=== PATIENT | female | born 1940 | race Caucasian/White ===

== ENCOUNTER 2016-10-01 16:28 | Emergency (ER) | payer OTHER ==
[~2016-10-01] VITALS: Ht 157.5 cm; Wt 83.5 kg
--- NOTE | ~2016-10-01 | CR72 ---
[facility] A Service of [facility] RADIOLOGY TEXT RESULTS PATIENT: ROSSY MCCORMICK LOCATION: [facility] : 36 UNIT #: [id number] AGE: [address]: Francisco Le MD SEX: F ORDER DR: [id number] [facility] [address] [place], [place] [address] [id number] MR#: [id number] Acc #: [id number] NAME: ROSSY MCCORMICK : 1940 SEX: F STUDY DATE/TIME: 10/01/2016 18:13 UNIT: [facility] ROOM: STUDY DESCRIPTION: CR Chest Single View Portable Attending Physician: Francisco Le M.D. Ordering Physician: Francisco Le M.D. Primary Care Physician: Laltio Lakhani M.D. MEDICAL IMAGING REPORT This report is preliminary unless electronic signature is present EXAM Portable chest HISTORY Shortness of air and weakness today. FINDINGS Mild cardiac enlargement. Normal pulmonary vascularity. Relatively low lung volumes. No airspace infiltrates or effusions. IMPRESSION No acute findings. Mild cardiac enlargement. Lungs are clear. Dictated by... Gerardo Aggarwal M.D. THIS IS AN ELECTRONICALLY VERIFIED REPORT Gerardo Aggarwal M.D. at 10/02/2016 2:37 PM [place] TD: 10/02/2016 09:14 JOB #: [id number] MEDICAL IMAGING REPORT Page 1 of 1 COPY
--- NOTE | ~2016-10-01 | EKG ---
PATIENT: ROSSY MCCORMICK UNIT #: [id number] Ventricular Rate: 59 BPM Atrial Rate: 59 BPM P-R Interval: 194 ms QRS Duration: 90 ms Q-T Interval: 466 ms QTC Calculation(Bezet): 461 ms P [place]: 56 degrees Calculated R [place]: -28 degrees Calculated T [place]: 27 degrees Diagnosis Line: Sinus bradycardia Diagnosis Line: Moderate voltage criteria for LVH, may be normal Diagnosis Line: variant Diagnosis Line: Borderline ECG Diagnosis Line: When compared with ECG of 06-SEP-2015 19:36, Diagnosis Line: No significant change was found Diagnosis Line: Confirmed by CHARISMA HOANG MD ([id number]) on Diagnosis Line: 10/02/2016 2:00:53 PM INTERPRETING MD: NATALYA YA
[~2016-10-01 16:28] MED LIST: ALDACTAZIDE 25/1 TAB PO; ASPIRIN325 M1 PO; DIOVAN HCT 80/11 TAB PO; DIOVAN PO; HCTZ PO; LIPITOR PO; OYSTER CALCIUM500 MG PO; PRILOSEC PO; TYLENOL325 M1 PO
[2016-10-01 16:58] LABS: BASOPHIL# 0.1 X10e3 (0-0.3); BASOPHIL% 0.6 % (0-2.5); EOSINOPHIL# 0.3 X10e3 (0-0.7); EOSINOPHIL% 3.4 % (0.0-7.0); HEMATOCRIT 39.8 % (35.0-45.0); HEMOGLOBIN 13.6 gm/dL (12.0-16.0); LYMPHOCYTE# 3.5 X10e3 (1.0-3.5); LYMPHOCYTE% 41.7 % (17.0-45.0); MEAN CELL VOLUME 85.1 FL (83-96); MEAN CORPUSCULAR HEMOGLOBIN 29.1 PG (28-34); MEAN CORPUSCULAR HGB CONC 34.2 g/dL (30-36); MONOCYTE# 0.8 X10e3 (0-1.0); MONOCYTE% 9.1 % (3.0-12.0); NEUTROPHIL# 3.8 X10e3 (1.5-7.1); NEUTROPHIL% 45.2 % (40-75); PLATELET COUNT 298 X10e3 (140-420); RED BLOOD COUNT 4.68 X10e (3.90-5.30); RED CELL DISTRIBUTION WIDTH 14.9 % (11.0-15.5); WHITE BLOOD COUNT 8.3 X10e3 (4.0-10.5)
[2016-10-01 17:02] LABS: DIFF IND NO
[2016-10-01 17:18] LABS: ALBUMIN SERUM 3.9 g/dL (3.5-5.0); BILIRUBIN, DIRECT 0.1 mg/dL (0.0-0.2); BILIRUBIN,INDIRECT 0.6 mg/dL (0.0-0.9); BILIRUBIN,TOTAL 0.7 mg/dL (0.2-2.0); BUN/CREATININE RATIO 28.57; CREATININE SERUM 0.7 mg/dL (0.6-1.4); POTASSIUM 3.7 mmol/L (3.5-5.1); PROTEIN TOTAL SERUM 7.7 g/dL (6.0-8.3)
[2016-10-01 18:11] LABS: POC - CKMB 1.5 ng/mL (0.0-7.9); POC - TROPONIN <0.05 ng/mL (<=0.05)
[2016-10-01 19:30] LABS: URINE SOURCE CLEAN CATCH
[2016-10-01 19:35] LABS: URINE APPEARANCE CLEAR; URINE BILIRUBIN NEG (NEG); URINE BLOOD NEG (NEG); URINE COLOR YELLOW; URINE GLUCOSE NEG (NEG); URINE KETONE NEG (NEG); URINE LEUKOCYTE ESTERASE NEG (NEG); URINE NITRATE NEG (NEG); URINE PH 5.5 (5-8); URINE PROTEIN NEG (NEG); URINE SPECIFIC GRAVITY 1.019 (1.003-1.035); URINE UROBILINOGEN 0.2 MG/DL (NEG)
[2016-10-01 19:43] LABS: CULTURE INDICATED? NO
[2016-10-01 20:49] LABS: POC - CKMB 1.6 ng/mL (0.0-7.9); POC - TROPONIN <0.05 ng/mL (<=0.05)
== END 2016-10-01 20:40 | disposition home or self-care (01) ==
LOC: CED 16:28
PROVIDERS: Emergency Medicine
DX: R53.1 Weakness (principal); I10 Essential (primary) hypertension; Z90.49 Acquired absence of other specified parts of digestive tract; Z90.710 Acquired absence of both cervix and uterus
CPT/HCPCS: 36415; 71010; 80048; 80076; 81003; 82553; 83880; 84484; 85025; 93005; 96360; 99285